=== PATIENT | female | born 1980 | race American Indian/Alaskan Native ===

== ENCOUNTER 2017-08-07 16:21 | Emergency (ER) | payer SELFPAY ==
[2017-08-07 16:38] VITALS: BP 184/104
[2017-08-07] MEDS ORDERED: ATIVAN PO ONE (16:46)
--- NOTE | 2017-08-07 16:56 | Emergency Department Report ---
ED Seizure HPI - General Chief Complaint: Seizure Stated Complaint: SEIZURES Time Seen by Provider: 08/07/17 16:37 Source: patient, EMS Mode of arrival: Stretcher Limitations: No Limitations - History of Present Illness Initial Comments: Patient is a 37-year-old [place] female who is presenting with psychogenic seizures. Patient has been having these type of episodes for several months now. Patient brought in by her sister because she had a "seizure at a library" . The patient's is from [place] and is just recently moved here to live with her sister. Patient states he she remembers the episodes. She had one episode here in the emergency Department front of me where she was still responding to questions. Patient's states that these are induced by stress. Patient has not seen a physician here in [place] yet. Patient denies any head injury fevers chills nausea vomiting. Patient doesn't history of migraines as well. MD Complaint: feel seizure coming on Possible Precipitating Event: stress Associated Symptoms: shortness of breath (patient sometimes will hold her breath during these episodes). denies: chest pain, confusion, cough, diaphoresis, fever/chills, loss of appetite, malaise, rash - Related Data Previous Rx's Medication Instructions Recorded Last Taken Type metFORMIN [Glucophage] 500 mg PO BID #60 tablet 04/21/16 Unknown Rx ALPRAZolam [Xanax TAB] 0.25 mg PO TID PRN #12 tab 08/07/17 Unknown Rx Allergies Allergy/AdvReac Type Severity Reaction Status Date / Time naproxen [From Aleve] Allergy Unknown Verified 08/07/17 16:38 phenytoin [From Dilantin] AdvReac Unknown Verified 08/07/17 16:38 ED Review of Systems ROS: Stated complaint: SEIZURES Other details as noted in HPI Comment: All other systems reviewed and negative ED Past Medical Hx - Past Medical History Previous Medical History?: Yes Hx Diabetes: Yes Hx Seizures: Yes Hx Psychiatric Treatment: Yes (depression; panic attacks) Additional medical history: migraines; Psychogenic Seizures - Surgical History Past Surgical History?: No - Social History Smoking Status: Never Smoker Substance Use Type: None - Medications Home Medications: Home Medications Medication Instructions Recorded Confirmed Last Taken Type metFORMIN [Glucophage] 500 mg PO BID #60 tablet 04/21/16 Unknown Rx ALPRAZolam [Xanax TAB] 0.25 mg PO TID PRN #12 tab 08/07/17 Unknown Rx ED Physical Exam - General Limitations: No Limitations General appearance: alert, in no apparent distress - Head Head exam: Present: atraumatic, normocephalic - Eye Eye exam: Present: normal appearance - ENT ENT exam: Present: mucous membranes moist - Neck Neck exam: Present: normal inspection - Respiratory Respiratory exam: Present: normal lung sounds bilaterally. Absent: respiratory distress - Cardiovascular Cardiovascular Exam: Present: regular rate, normal rhythm. Absent: systolic murmur, diastolic murmur, rubs, gallop - GI/Abdominal GI/Abdominal exam: Present: soft, normal bowel sounds - Extremities Exam Extremities exam: Present: normal inspection - Back Exam Back exam: Present: normal inspection - Neurological Exam Neurological exam: Present: alert, oriented X3 - Psychiatric Psychiatric exam: Present: normal affect, normal mood - Skin Skin exam: Present: warm, dry, intact, normal color. Absent: rash ED Course Vital Signs 08/07/17 16:35 Pulse Rate 125 H Respiratory 16 Rate Blood Pressure 184/104 O2 Sat by Pulse 97 Oximetry ED Medical Decision Making - Medical Decision Making Did speak with the patient and her sister regarding pseudoseizures and the need for psychiatry evaluation and primary care physician. They voiced understanding. Patient now taking any medications at this time I did offer something for stress and anxiety. Patient does have some mild tachycardia. Patient's blood pressure was elevated on arrival it is decreasing on its own after responsible. Discharge patient's systolic blood pressure was 160. Family states that she does not have a history of hypertension and do not want to start medications at this time. I believe this is reasonable and have offered follow-up with internal medicine to have her blood pressure rechecked. Critical care attestation.: If time is entered above; I have spent that time in minutes in the direct care of this critically ill patient, excluding procedure time. ED Disposition Clinical Impression: Pseudoseizure Disposition: DC-01 TO HOME OR SELFCARE Is pt being admited?: No Does the pt Need Aspirin: No Condition: Stable Instructions: Stress (ED) Prescriptions: ALPRAZolam [Xanax TAB] 0.25 mg PO TID PRN #12 tab PRN Reason: Anxiety Referrals: ALLEN PHAM MD [Staff Physician] - 3-5 Days
== END 2017-08-07 17:03 | disposition home or self-care (01) ==
LOC: ED 16:21
DX: R56.9 Unspecified convulsions (principal); R06.02 Shortness of breath; F32.9 Major depressive disorder, single episode, unspecified; G43.909 Migraine, unspecified, not intractable, without status migrainosus; F41.0 Panic disorder [episodic paroxysmal anxiety]; Z88.8 Allergy status to other drugs, medicaments and biological substances; Z88.6 Allergy status to analgesic agent
CPT/HCPCS: 99283